=== PATIENT | male | born 1965 | race Caucasian/White ===

== ENCOUNTER 2021-12-12 17:26 | Emergency (ER) | payer MEDICARE, OTHER ==
[2021-12-12 23:09] LABS: HEMOGLOBIN 12.7 gm/dl (14.0-17.5); RED BLOOD COUNT 4.47 M/UL (4.20-5.50); WHITE BLOOD COUNT 18.2 K/UL (4.5-11.0)
[2021-12-13] LABS: BUN/CREATININE RATIO 31 (0-10)
== END 2021-12-13 08:08 | disposition home or self-care (01) ==
LOC: ER1 17:26
PROVIDERS: Family Medicine
DX: I82.621 Acute embolism and thrombosis of deep veins of right upper extremity (principal); D72.829 Elevated white blood cell count, unspecified; Q05.9 Spina bifida, unspecified; F17.200 Nicotine dependence, unspecified, uncomplicated; Z96.0 Presence of urogenital implants
CPT/HCPCS: 80048; 83605; 85025; 86140; 99283

== ENCOUNTER 2022-01-21 06:14 | Emergency (ER) | payer MEDICARE, OTHER ==
[2022-01-21 07:22] LABS: BUN/CREATININE RATIO 24 (0-10); HEMOGLOBIN 13.7 gm/dl (14.0-17.5); RED BLOOD COUNT 4.94 M/UL (4.20-5.50); WHITE BLOOD COUNT 12.9 K/UL (4.5-11.0)
== END 2022-01-23 02:10 | disposition short-term general hospital (02) ==
LOC: ER1 06:14
PROVIDERS: Physician Assistant
DX: G91.9 Hydrocephalus, unspecified (principal); J18.9 Pneumonia, unspecified organism; I51.7 Cardiomegaly; F17.210 Nicotine dependence, cigarettes, uncomplicated; Z98.2 Presence of cerebrospinal fluid drainage device
CPT/HCPCS: 70496; 70498; 71045; 74018; 80053; 81001; 83605; 83735; 85025; 85610; 87040; 87077; 87086; 87186; 93005; 96374; 99285; J0696; Q9967